=== PATIENT | male | born 1990 | race Caucasian/White ===

== ENCOUNTER → 2020-03-29 | Outpatient (CLI) | payer BC ==
[~2020-03-29] MED LIST: CIPRO 500MG TA500 MG PO; CLARITIN 1010 MG/TAB; CLARITIN D TAB1 TAB PO; FLAGYL500 MG PO; MUCINEX 60600 MG/TA1 PO; NAPROSYN500 MG PO; NORCO 325 MG-51 TAB PO; SUDAFED30 MG PO; ZOFRAN 4MG T4 MG/TAB PO
== END ==
LOC: ZCOL.LAB 17:18
DX: J06.9 Acute upper respiratory infection, unspecified (principal); Z20.828 Contact with and (suspected) exposure to other viral communicable diseases